=== PATIENT | female | born 1990 | race Two or more races ===

== ENCOUNTER 2021-06-20 09:11 | Outpatient (CLI) | payer OTHER | END 2021-06-20 10:56 | disposition home or self-care (01) | LOC: PRENATAL 09:11 | PROVIDERS: ATTEND Obstetrics & Gynecology Maternal & Fetal Medicine | DX: O35.0XX0 Maternal care for (suspected) central nervous system malformation in fetus, not applicable or unspecified (principal); Z3A.20 20 weeks gestation of pregnancy; O35.3XX0 Maternal care for (suspected) damage to fetus from viral disease in mother, not applicable or unspecified ==

== ENCOUNTER 2021-10-23 07:30 | Inpatient (IN) | payer OTHER ==
[~2021-10-23] VITALS: Ht 160 cm; Wt 65.3 kg
[2021-10-23] MEDS ORDERED: PRENAT PO (09:45)
[2021-10-23] MEDS ORDERED: MULTIVITAM PO (09:45)
[2021-10-30] MEDS ORDERED: PROVIDA OB CAP1 EACH (09:47)
[2021-10-30] MEDS ORDERED: MULTI VITAMIN1 EACH (09:47)
[2021-10-30] MEDS ORDERED: CETIRIZINE HCL10 MG (09:47)
== END 2021-11-01 15:02 | disposition home or self-care (01) | DRG 788 ==
LOC: LDR 10-29 07:30 → O/R 10-29 14:15 → OB/GYN 10-30 03:13
PROVIDERS: ADMIT Obstetrics & Gynecology; ATTEND Obstetrics & Gynecology
PROC: 4A1HXCZ Monitoring of Products of Conception, Cardiac Rate, External Approach (ICD-10-PCS; 2021-10-29)
PROC: 10D00Z1 Extraction of Products of Conception, Low, Open Approach (ICD-10-PCS; principal; 2021-10-29 16:15)
DX: O82 Encounter for cesarean delivery without indication (principal); Z3A.39 39 weeks gestation of pregnancy; Z37.0 Single live birth; Z20.822 Contact with and (suspected) exposure to COVID-19